=== PATIENT | female | born 1995 | race Caucasian/White ===

== ENCOUNTER 2022-02-18 07:55 | Inpatient (IN) | payer BC ==
[2022-02-18] MEDS ORDERED: Sodium Chloride 0.9% 10 ML Syringe FLUSH PRN (08:41)
[2022-02-18] MEDS ORDERED: Ondansetron 4 MG/2 ML SDV IVPUSH PRN (08:41)
[2022-02-18] MEDS ORDERED: Nalbuphine HCl 10 MG/ 1ML Amp IVPUSH PRN (08:41)
[2022-02-18] MEDS ORDERED: Oxytocin/Lactated Ringers 10 UNIT/1,000 ML BAG IV SCH (08:45)
[2022-02-18] MEDS: Sodium Chloride 0.9% 10 ML Syringe FLUSH SCH ×2 (09:52→22:42)
[2022-02-18] MEDS ORDERED: Bupivacaine/fentaNYL/NS 100 ML Bag EPIDUR PRN (11:27)
[2022-02-18] MEDS ORDERED: ePHEDrine 50 MG/ML SDV IVPUSH PRN (11:27)
[2022-02-18] MEDS ORDERED: diphenhydrAMINE 50 MG/ML SDV IVPUSH PRN (11:27)
[2022-02-18] MEDS: Lactated Ringers 1,000 ML IV SCH ×2 (19:01→19:53)
[2022-02-18] MEDS: fentaNYL 100 MCG/2 ML SDV EPIDUR PRN ×2 (19:24→23:00)
[2022-02-19] MEDS ORDERED: Bupivacaine 0.25% 10 ML SDV ONE ×2
[2022-02-19] MEDS: Lactated Ringers 1,000 ML IV SCH (00:05)
[2022-02-19] MEDS ORDERED: Witch Hazel Medicated Pads 40/Jar TOP PRN (02:29)
[2022-02-19] MEDS ORDERED: Benzocaine/Menthol 20%-0.5% Spray 78 GM Cannister TOP PRN (02:29)
[2022-02-19] MEDS ORDERED: Acetaminophen 325 MG Tab PO PRN (02:29)
[2022-02-19] MEDS: Ibuprofen 600 MG Tab PO PRN ×3 (02:49→16:55)
[2022-02-19] MEDS: Docusate Sodium 100 MG Cap PO PRN (15:35)
[2022-02-20] MEDS: Ibuprofen 600 MG Tab PO PRN ×2 (04:03→08:43)
[2022-02-20] MEDS: Docusate Sodium 100 MG Cap PO PRN (04:04)
== END 2022-02-20 09:20 | disposition home or self-care (01) | DRG 560 ==
LOC: JD.OBCHECK 07:55 → JD.OB 08:04 → JD.OBCHECK 08:41 → JD.OB 09:07 → INTOOBSV 02-19 01:11 → OBSVTOIN 02-19 01:11
PROVIDERS: ADMIT Obstetrics & Gynecology; ATTEND Obstetrics & Gynecology
PROC: 10E0XZZ Delivery of Products of Conception, External Approach (ICD-10-PCS; principal; 2022-02-19)
PROC: 3E0R3BZ Introduction of Anesthetic Agent into Spinal Canal, Percutaneous Approach (ICD-10-PCS; 2022-02-19)
PROC: 0KQM0ZZ Repair Perineum Muscle, Open Approach (ICD-10-PCS; 2022-02-19)
PROC: 00HU33Z Insertion of Infusion Device into Spinal Canal, Percutaneous Approach (ICD-10-PCS; 2022-02-19)
DX: O14.04 Mild to moderate pre-eclampsia, complicating childbirth (principal); Z3A.39 39 weeks gestation of pregnancy; Z37.0 Single live birth; O77.0 Labor and delivery complicated by meconium in amniotic fluid; O70.1 Second degree perineal laceration during delivery; O99.214 Obesity complicating childbirth
CPT/HCPCS: 36415; 51702; 59025; 59409; 82565; 82570; 84156; 84450; 84460; 85027; 86592; 86850; 86900; 86901; A9270-GY; J1200; J2405; J2590; J3010; J3490; J7120

== ENCOUNTER 2024-01-02 12:28 | Observation (INO) | payer BC ==
[2024-01-02] MEDS: Dextrose 5%-Lactated Ringers 1,000 ML IV SCH (14:00)
[2024-01-02] MEDS: Betamethasone Acetate/Betamethasone Sod Phosphate 6 MG/1 ML MDV IM ONE (17:07)
[2024-01-02] MEDS ORDERED: Sodium Chloride 0.9% 10 ML Syringe FLUSH SCH (21:00)
[2024-01-03] MEDS: Lactated Ringers 500 ML IV ONE (03:32)
[2024-01-03 14:45] LABS: GROUP B STREP BY PCR NEGATIVE (NEGATIVE)
== END 2024-01-03 05:15 ==
LOC: JD.OBCHECK 12:28 → JD.OB 12:28 → JD.OBCHECK 17:05
PROVIDERS: ADMIT Obstetrics & Gynecology; ATTEND Obstetrics & Gynecology
DX: O36.8190 Decreased fetal movements, unspecified trimester, not applicable or unspecified (principal); K21.9 Gastro-esophageal reflux disease without esophagitis; O36.8390 Maternal care for abnormalities of the fetal heart rate or rhythm, unspecified trimester, not applicable or unspecified; Z3A.34 34 weeks gestation of pregnancy; Z79.899 Other long term (current) drug therapy
CPT/HCPCS: 59025; 87653; 96372; G0378; J0702; J7120; J7121